=== PATIENT | female | born 1945 | race Caucasian/White ===

== ENCOUNTER 2017-02-04 20:58 | Emergency (ER) | payer MEDICARE, OTHER | END 2017-02-04 22:10 | disposition home or self-care (01) | LOC: ER1 20:58 | DX: R21 Rash and other nonspecific skin eruption (principal); E11.9 Type 2 diabetes mellitus without complications; I10 Essential (primary) hypertension; G25.81 Restless legs syndrome; F17.210 Nicotine dependence, cigarettes, uncomplicated; Z88.1 Allergy status to other antibiotic agents; Z88.8 Allergy status to other drugs, medicaments and biological substances; Z79.899 Other long term (current) drug therapy | CPT/HCPCS: 99282 ==

== ENCOUNTER → 2017-03-21 | Outpatient (CLI) | payer MEDICARE, OTHER | LOC: HEART 5 08:46 | DX: Z51.81 Encounter for therapeutic drug level monitoring (principal); Z79.899 Other long term (current) drug therapy | CPT/HCPCS: 94010; 94729 ==

== ENCOUNTER → 2021-04-21 | Outpatient (CLI) | payer MEDICARE, OTHER ==
[~2021-04-21] MED LIST: ATIVAN0.5 MG PO; AUGMENTIN 875-1 EACH PO; BACTROBAN NASAL1 G1; CEFPODOXIME PR200 MG PO; CEFUROXIME500 MG PO; CORDARONE 200M200 MG PO; FLEXERIL 10 MG10 MG PO; GLUCOPHAGE1000 MG PO; LASIX40 MG PO; LOTENSIN40 MG PO; MAXZIDE 37.5 M1 EACH PO; NEURONTIN800 MG PO; NORCO 5-325 TA1 EACH PO; PERCOCET 5/325 T1 EA PO; PRADAXA75 MG PO; PROZAC40 MG PO; RANEXA500 MG PO; ROPINIROLE HCL4 MG PO; TIZANIDINE HCL2 MG PO; TRIAMCINOLONE A15 G1 TOP; XYZAL5 MG PO
[2021-04-21 17:47] LABS: HEMOGLOBIN 10.1 gm/dl (12.3-15.3); RED BLOOD COUNT 3.76 M/UL (4.00-5.10); WHITE BLOOD COUNT 5.7 K/UL (4.5-11.0)
[2021-04-21 18:04] LABS: BUN/CREATININE RATIO 23 (0-10)
== END ==
LOC: LAB 15:31
PROVIDERS: Dermatology
DX: L50.9 Urticaria, unspecified (principal); E06.9 Thyroiditis, unspecified; B35.5 Tinea imbricata; K76.9 Liver disease, unspecified; R63.4 Abnormal weight loss; Z79.899 Other long term (current) drug therapy
CPT/HCPCS: 80053; 85025; 85027; 86255

== ENCOUNTER → 2021-07-12 | Outpatient (CLI) | payer MEDICARE, OTHER ==
[2021-07-12 08:35] LABS: HEMOGLOBIN 10.1 gm/dl (12.3-15.3); WHITE BLOOD COUNT 7.1 K/UL (4.5-11.0)
[2021-07-12 09:00] LABS: BUN/CREATININE RATIO 20 (0-10)
== END ==
LOC: LAB 07:54
PROVIDERS: Family Medicine
DX: R07.9 Chest pain, unspecified (principal); I10 Essential (primary) hypertension; E78.2 Mixed hyperlipidemia; D50.9 Iron deficiency anemia, unspecified; K21.9 Gastro-esophageal reflux disease without esophagitis; R29.6 Repeated falls; R91.8 Other nonspecific abnormal finding of lung field; Z79.899 Other long term (current) drug therapy
CPT/HCPCS: 36415; 71046; 80053; 80061; 82607; 82728; 83540; 83550; 83735; 85027; 85045

== ENCOUNTER → 2021-07-23 | Outpatient (CLI) | payer MEDICARE, OTHER | LOC: MAMO 02-23 15:00 | DX: Z12.31 Encounter for screening mammogram for malignant neoplasm of breast (principal) | CPT/HCPCS: 77063; 77067 ==

== ENCOUNTER → 2021-08-03 | Outpatient (CLI) | payer MEDICARE, OTHER | LOC: RAD 11:51 | DX: R93.89 Abnormal findings on diagnostic imaging of other specified body structures (principal) | CPT/HCPCS: 71046 ==

== ENCOUNTER → 2021-08-18 | Outpatient (CLI) | payer MEDICARE, OTHER ==
[~2021-08-18] MED LIST changes: +COREG3.125 MG PO; +JANUVIA 100 MG100 MG PO; +NORVASC10 MG PO; +PROTONIX 40 MG40 M1 PO; +VITAMIN D325 MCG PO
== END ==
LOC: HEART 5 11:00
DX: I20.9 Angina pectoris, unspecified (principal); R60.9 Edema, unspecified; R06.02 Shortness of breath; I08.3 Combined rheumatic disorders of mitral, aortic and tricuspid valves; I27.20 Pulmonary hypertension, unspecified; R93.1 Abnormal findings on diagnostic imaging of heart and coronary circulation
CPT/HCPCS: ECHO; 93306

== ENCOUNTER → 2021-08-23 | Outpatient (CLI) | payer MEDICARE, OTHER | LOC: EXRD 08:38 | DX: J18.9 Pneumonia, unspecified organism (principal) | CPT/HCPCS: 71046; U0003 ==

== ENCOUNTER → 2021-08-25 | Outpatient (CLI) | payer MEDICARE, OTHER ==
[2021-08-25 08:14] LABS: HEMOGLOBIN 10.4 gm/dl (12.3-15.3)
[2021-08-25 08:36] LABS: BUN/CREATININE RATIO 27 (0-10)
== END ==
LOC: CATH 07:20
PROVIDERS: Internal Medicine Cardiovascular Disease
DX: I48.19 Other persistent atrial fibrillation (principal); I49.5 Sick sinus syndrome; I25.119 Atherosclerotic heart disease of native coronary artery with unspecified angina pectoris; I11.0 Hypertensive heart disease with heart failure; I50.32 Chronic diastolic (congestive) heart failure; E11.42 Type 2 diabetes mellitus with diabetic polyneuropathy; G30.9 Alzheimer's disease, unspecified; F02.80 Dementia in other diseases classified elsewhere, unspecified severity, without behavioral disturbance, psychotic disturbance, mood disturbance, and anxiety; E78.2 Mixed hyperlipidemia; M81.0 Age-related osteoporosis without current pathological fracture; F17.210 Nicotine dependence, cigarettes, uncomplicated; Z88.5 Allergy status to narcotic agent; Z88.8 Allergy status to other drugs, medicaments and biological substances; Z79.84 Long term (current) use of oral hypoglycemic drugs; Z79.899 Other long term (current) drug therapy; Z20.822 Contact with and (suspected) exposure to COVID-19
CPT/HCPCS: 36415; 80048; 82962; 85027; 92960; 93005; J0461; J1200; J1742; J2250; J2310; J3010; J7040

== ENCOUNTER → 2021-08-31 | Outpatient (CLI) | payer MEDICARE, OTHER | LOC: KOH-I 09:00 | DX: R91.8 Other nonspecific abnormal finding of lung field (principal); J43.2 Centrilobular emphysema; J98.11 Atelectasis | CPT/HCPCS: 71250 ==

== ENCOUNTER → 2021-09-07 | Outpatient (CLI) | payer MEDICARE, OTHER | LOC: HEART 5 13:13 | DX: I27.20 Pulmonary hypertension, unspecified (principal) | CPT/HCPCS: 94060; 94729 ==

== ENCOUNTER → 2021-11-19 | Outpatient (CLI) | payer MEDICARE, OTHER ==
[~2021-11-19] MED LIST changes: +BACTROBAN OINT22 GM EXT; +FERROUS GLUCON240 MG PO; +NOVOLOG FL100 UNIT/1 INJ; +VENTOLIN HFA INH
[2021-11-19 10:14] LABS: HEMOGLOBIN 13.1 gm/dl (12.3-15.3); RED BLOOD COUNT 4.47 M/UL (4.00-5.10); WHITE BLOOD COUNT 5.8 K/UL (4.5-11.0)
[2021-11-19 11:02] LABS: BUN/CREATININE RATIO 24 (0-10)
[2021-11-20 09:14] LABS: CREATININE, URINE 88.9 mg/dL (Not Estab.)
== END ==
LOC: LAB 08:42
PROVIDERS: Internal Medicine Cardiovascular Disease
DX: E11.9 Type 2 diabetes mellitus without complications (principal); I27.20 Pulmonary hypertension, unspecified; I48.0 Paroxysmal atrial fibrillation; R06.02 Shortness of breath; Z79.899 Other long term (current) drug therapy; E55.9 Vitamin D deficiency, unspecified; I10 Essential (primary) hypertension; D50.9 Iron deficiency anemia, unspecified
CPT/HCPCS: 36415; 71046; 80053; 82043; 82570; 82607; 82728; 83036; 83540; 83550; 83735; 85025; 85045

== ENCOUNTER → 2021-11-23 | Outpatient (CLI) | payer MEDICARE, OTHER | LOC: CATH 07:54 | DX: I27.20 Pulmonary hypertension, unspecified (principal); I48.0 Paroxysmal atrial fibrillation; I11.0 Hypertensive heart disease with heart failure; I50.32 Chronic diastolic (congestive) heart failure; E78.5 Hyperlipidemia, unspecified; I25.10 Atherosclerotic heart disease of native coronary artery without angina pectoris; I49.5 Sick sinus syndrome; E11.42 Type 2 diabetes mellitus with diabetic polyneuropathy; G30.9 Alzheimer's disease, unspecified; F02.80 Dementia in other diseases classified elsewhere, unspecified severity, without behavioral disturbance, psychotic disturbance, mood disturbance, and anxiety; Z87.891 Personal history of nicotine dependence; Z88.1 Allergy status to other antibiotic agents; Z88.5 Allergy status to narcotic agent; Z88.8 Allergy status to other drugs, medicaments and biological substances; Z79.4 Long term (current) use of insulin; Z79.899 Other long term (current) drug therapy; Z20.822 Contact with and (suspected) exposure to COVID-19 | CPT/HCPCS: 71045; 82962; 99152; 99153; C1751; J0153; J1644; J2250; J3010; J7030; U0002 ==

== ENCOUNTER 2021-12-09 00:30 | Emergency (ER) | payer MEDICARE, OTHER ==
[2021-12-09 01:29] LABS: HEMOGLOBIN 10.9 gm/dl (12.3-15.3); RED BLOOD COUNT 3.66 M/UL (4.00-5.10); WHITE BLOOD COUNT 8.7 K/UL (4.5-11.0)
[2021-12-09 01:58] LABS: BUN/CREATININE RATIO 19 (0-10)
== END 2021-12-09 05:06 | disposition home or self-care (01) ==
LOC: ER1 00:30
PROVIDERS: Student in an Organized Health Care Education/Training Program
DX: R06.02 Shortness of breath (principal); R20.2 Paresthesia of skin; I11.9 Hypertensive heart disease without heart failure; I48.91 Unspecified atrial fibrillation; E10.9 Type 1 diabetes mellitus without complications; Z86.73 Personal history of transient ischemic attack (TIA), and cerebral infarction without residual deficits; Z79.01 Long term (current) use of anticoagulants
CPT/HCPCS: 70450; 71045; 80048; 82550; 82553; 84484; 85025; 85379; 93005; 99285; U0002

== ENCOUNTER 2022-02-15 20:10 | Inpatient (IN) | payer MEDICARE, OTHER ==
[~2022-02-15] VITALS: Ht 165.1 cm; Wt 74.8 kg
[~2022-02-15 20:10] MED LIST changes: +CEFDINIR300 MG PO
[2022-02-15 20:38] LABS: HEMOGLOBIN 11.1 gm/dl (12.3-15.3); RED BLOOD COUNT 3.94 M/UL (4.00-5.10); WHITE BLOOD COUNT 13.1 K/UL (4.5-11.0)
[2022-02-15 21:12] LABS: BUN/CREATININE RATIO 36 (0-10)
[2022-02-16] MEDS ORDERED: DUPIXENT300 MG/2 M SQ (10:01)
[2022-02-16] MEDS ORDERED: FUROSEMIDE40 MG PO ×2 (10:06→14:59)
--- NOTE | 2022-02-16 14:54 | NUR ---
patient wanted to leave AMA because of her nobody to care of her dog. reported this to dr. garrett and dr. garrett spoke to patient and received order to give the prescriptions he will write and to let her sign AMA form
[2022-02-16] MEDS ORDERED: LOPRESSOR 25 MG25 MG PO (14:59)
--- NOTE | 2022-02-16 15:32 | NUR ---
patient came to the floor and wanted to have us remove her iv access. requested for her to go back to her room and we will remove it and she stated if we do not remove it right now she is going to remove it herself. followed her to her room and d/c iv access and wrapped with kerlix. informed her will be right back to give her education and instruction per md order and when back to her room patient was not in the room and was called by [facility] food service steward that patient was seen getting in the elevator. patient left the floor. unable to give education and instructions about her discharge.
--- NOTE | 2022-02-16 15:51 | NUR ---
informed dr. garrett of the episode of the patient that I was unable to give instructions and education. dr. garrett acknowledged
== END 2022-02-16 15:35 | disposition left against medical advice (07) | DRG 291 ==
LOC: ER1 20:10 → CDU 02-16 01:32 → M/S 02-16 08:28
PROVIDERS: Student in an Organized Health Care Education/Training Program; ADMIT Internal Medicine
PROC: B24BZZZ Ultrasonography of Heart with Aorta (ICD-10-PCS; principal; 2022-02-16)
DX: I11.0 Hypertensive heart disease with heart failure (principal); I50.33 Acute on chronic diastolic (congestive) heart failure; J96.01 Acute respiratory failure with hypoxia; I48.19 Other persistent atrial fibrillation; I25.10 Atherosclerotic heart disease of native coronary artery without angina pectoris; I27.20 Pulmonary hypertension, unspecified; E78.5 Hyperlipidemia, unspecified; E11.9 Type 2 diabetes mellitus without complications; Z88.1 Allergy status to other antibiotic agents; Z82.49 Family history of ischemic heart disease and other diseases of the circulatory system; Z79.899 Other long term (current) drug therapy; Z79.01 Long term (current) use of anticoagulants; Z98.49 Cataract extraction status, unspecified eye; Z90.89 Acquired absence of other organs; Z90.710 Acquired absence of both cervix and uterus; Z90.10 Acquired absence of unspecified breast and nipple; Z98.890 Other specified postprocedural states; Z83.3 Family history of diabetes mellitus; Z82.3 Family history of stroke; Z88.8 Allergy status to other drugs, medicaments and biological substances; Z88.6 Allergy status to analgesic agent
CPT/HCPCS: ECHO; 36415; 36600; 71045; 80053; 80061; 81001; 82550; 82553; 82803; 82962; 83036; 83605; 83880; 84484; 85025; 85379; 87040; 93005; 93306; 96374; 96376; 99285; J1940; Q9967

== ENCOUNTER → 2022-03-31 | Outpatient (CLI) | payer MEDICARE, OTHER ==
[~2022-03-31] MED LIST changes: +DUPIXENT300 MG/2 M SQ; +FUROSEMIDE40 MG PO; +LOPRESSOR 25 MG25 MG PO
[2022-03-31 13:17] LABS: HEMOGLOBIN 10.6 gm/dl (12.3-15.3); RED BLOOD COUNT 3.95 M/UL (4.00-5.10); WHITE BLOOD COUNT 4.6 K/UL (4.5-11.0)
== END ==
LOC: MRI 12:46
PROVIDERS: Nurse Practitioner Family
DX: T84.038A Mechanical loosening of other internal prosthetic joint, initial encounter (principal); T84.226A Displacement of internal fixation device of vertebrae, initial encounter
CPT/HCPCS: 36415; 72158; 80053; 85027; 85652; 86140; A9577